=== PATIENT | male | born 2005 | race Hispanic/Latino ===

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

== ENCOUNTER 2025-01-17 20:19 | Emergency (ER) | payer BC, SELFPAY ==
--- OUTSIDE RECORDS SUMMARY | 2025-01-17 20:48 | XMS_ITS | Clinical Summary ---
Author Organization [facility] Address [address] [place] [address] Care Team Providers Care Spring Repairer Helper Hand Name Role Phone Claudine Puente MD Primary Care Provider [phone] Allergies No known active allergies Medications tretinoin (RETIN-A) 0.01 % TOP topical gel apply topically nightly. Use as directed. 45 g 3 1 Active Additional Information Patient not taking.Reported on 09/10/2023 ciprofloxacin-d exAMETHasone (CIPRODEX) 0.3-0.1 % Otic ear drops apply 4 drops into the right ear two times daily. Use as directed. 7.5 mL 1 1 Active Additional Information Patient not taking.Reported on 10/08/2021 pantoprazole (PROTONIX) 40 mg PO delayed release tablet Take 1 tablet (40 mg) by mouth every morning Swallow whole. 30 tablet 5 02/05/20 25 Active Active Problems Problem Noted Date Diagnosed Date Severe obesity due to excess calories with body mass index (BMI) greater than 99th percentile for age in pediatric patient 09/10/2023 BMI (body mass index), pediatric, > 99% for age 0810/08/2021 Encounters Date Type Department Care Team Description 01/05/2025 6:02 PM PROFILER HAND - 01/05/2025 8:42 PM PROFILER HAND Emergency [facility] Emergency Room - [address] [address] Rg Patterson DO Pain of upper abdomen (Primary Dx); Nausea Discharge Disposition: Discharged to home or self care (routine discharge) from Last 3 Months Immunizations Immunization Administration Dates Next Due Licoeknaxu-udfdaev-hzctcysbs Pertussis (DTaP) Injection 11/20/2007 Fluarix (Pf) - [...] ROTAVIRUS LIVE, PE NTA VALENT VACCINE 06/09/2006,03/20/2006,01/16/2006 Jmuknkx-Izdtnxrujp-Jlwifbbqz Pertussis (Tdap) Injection 06/17/2017 Varicella 11/23/2010,11/17/2006 Family [...] Currently or in the past 3 m onths, have you worried your food would run out before you had money to buy more? No 2023 In the past 12 months, have you run out of food or been unable to get more? No 09/10/2023 Transportation Needs Answer Date Record ed Currently or in the past 3 m onths, has lack of transportation kept you from [...] Sign Reading Time Taken Comments Blood Pressure 113/65 01/05/2025 8:16 PM PROFILER HAND Pulse 67 01/05/2025 8:16 PM PROFILER HAND Temperature 36.8 C (98.3 F) 01/05/2025 8:16 PM PROFILER HAND Respiratory Rate 18 01/05/2025 8:16 PM PROFILER HAND Oxygen Saturation 98% 01/05/2025 8:16 PM PROFILER HAND Inhaled Oxygen Concentration - - Weight 110 kg (243 lb 6.2 oz) 01/05/2025 6:01 PM PROFILER HAND Height 162.6 cm (5' 4) 04/04/2024 12:47 PM PROFILER HAND Body Mass Index 41.78 04/04/2024 12:47 PM PROFILER HAND Plan of Treatment Health Maintenance Due Date Last Done Comments HIV Screening 2005 Hepatitis C Screening 2005 COVID-19 Vaccine ( season) 2024 Influenza Vaccine (#1) 2024 , [...] on patient's age to complete this topic Procedures Procedure Name Priority Date/Time Associated Diagnosis Comments LIPASE STAT 01/05/2025 6:26 PM PROFILER HAND COMPREHENSIVE METABOLIC PANEL STAT 01/05/2025 6:26 PM PROFILER HAND CBC WITH DIFFERENTIAL STAT 01/05/2025 6:26 PM PROFILER HAND from Last 3 Months Results * Lipase (01/05/2025 6:26 PM PROFILER HAND) Lipase 12 <=60 U/L 01/05/2025 7:0 2 PM PROFILER HAND [facility] Blood VENOUS BLOOD / Unknown Venipuncture / Unknown 01/05/2025 6:26 PM PROFILER HAND 01/05/2025 6:42 PM PROFILER HAND Rg Patterson DO LAB BLOOD ORDERABLES Final Resul t [facility] [address] [place] [address], [facility] [phone] * (ABNORMAL) Comprehensive Metabolic Panel (01/05/2025 6:26 PM [facility]) Sodium 139 136 - 145 mmol/L 01/05/2025 7:02 PM [facility] Potassium 4.0 3.4 - 5.1 mmol/L 01/05/2025 7:02 PM [facility] Comment:Specimen slightly he molyzed. In vitro hemolysis may falsely increase results for this analyte. Interpret with caution. Chloride 101 99 - 108 mmol/L 01/05/2025 7:02 PM [facility] CO2 Total 25 22 - 31 mmol/L 01/05/2025 7:02 PM [facility] Anion Gap 13 8 - 16 01/05/2025 7:02 PM [facility] BUN 10 8 - 21 mg/dL 01/05/2025 7:02 PM [facility] Creatinine 1.08 0.72 - 1.25 mg/dL 01/05/2025 7:02 PM [facility] BUN/Creat Ratio 9.3 8.0 - 25.0 7:02 PM [facility] EGFR >90 01/05/2025 7:02 PM [facility] Glucose 92 70 - 100 mg/dL 01/05/2025 7:02 PM [facility] Total Protein 8.1 6.4 - 8.3 g/dL 01/05/2025 7:02 PM [facility] Albumin 4.4 2.9 - 5.0 g/dL 01/05/2025 7:02 PM [facility] Globulin 3.7(H) 2.0 - 3.4 g/dL 01/05/2025 7:02 PM [facility] Albumin/Globulin Ratio 1.2 1.0 - 2.2 mg/dL 01/05/2025 7:02 PM [facility] Calcium 9.0 8.4 - 11.0 mg/dL 01/05/2025 7:02 PM [facility] Bilirubin, Total 0.8 0.2 - 1.3 mg/dL 01/05/2025 7:02 PM PROFILER HAND [facility] Alkaline Phosphatase 87 40 - 150 U/L 01/05/2025 7:02 PM [facility] AST 32 5 - 34 U/L 01/05/2025 7:02 PM [facility] Comment:Specimen slightly he molyzed. In vitro hemolysis may falsely increase results for this analyte. Interpret with caution. ALT 31 0 - 55 U/L 01/05/2025 7:02 PM [facility] Blood VENOUS BLOOD / Unknown Venipuncture / Unknown 01/05/2025 6:26 PM PROFILER HAND 01/05/2025 6:42 PM [facility] Narrative [facility] - 01/05/2025 7:02 PM [facility] ESTIMATED GLOMERULAR FILTRATION RATE INTERPRETATIONS FOR ALL PATIENTS eGFR Value Interpretation Units are mL/min/1.73 sq m. <15 Kidney Failure 15-29 Severely decreased 30-44 Moderately to severely decreased 40-59 Mildly to moderately decreased 60-89 Mildly decreased >=90 Normal or high Not Applicable for ages <18 The GFR estimate (eGFR) is calculated using the 2020 CKD-EPI creatinine formula. (Please visit [email or web address] for more information.) The equation has not been validated for use in women, patients with serious comorbid conditions, or persons with extremes of body size, muscle mass or nutritional status. Rg Patterson LAB BLOOD ORDERABLES Final Resul t [facility] [address] [phone] * (ABNORMAL) CBC With Differential (01/05/2025 6:26 PM [facility]) Pathologist [facility] White Blood Count 6.84 4.00 - 10.00 K/uL 01/05/2025 6:45 PM [facility] Red Blood Cell Count 5.39 4.50 - 5.90 M/uL 01/05/2025 6:45 PM [facility] Hemoglobin 15.7 13.5 - 17.5 g/dL 01/05/2025 6:45 PM [facility] Hematocrit 47.2 42.0 - 54.0 % 01/05/2025 6:45 PM [facility] MCV 87.6 82.0 - 103.0 fL 01/05/2025 6:45 PM [facility] MCH 29.1 26.0 - 34.0 pg 01/05/2025 6:45 PM [facility] MCHC 33.3 30.0 - 37.0 g/dL 01/05/2025 6:45 PM [facility] Red Cell Distribution Width 12.6 11.5 - 14.5 % 01/05/2025 6:45 PM [facility] Platelet Count 276 150 - 399 K/uL 01/05/2025 6:45 PM [facility] Mean Platelet Volume 9.7 8.3 - 12.3 fL 01/05/2025 6:45 PM [facility] Nucleated Red Blood Cells 0.0 <=4.5 % 01/05/2025 6:45 PM [facility] Segmented Neutrophils 64.4 36.0 - 72.0 % 01/05/2025 6:45 PM [facility] Lymphocytes 23.0 18.0 - 52.0 % 01/05/2025 6:45 PM [facility] Monocytes 10.2(H) 3.0 - 10.0 % 01/05/2025 6:45 PM [facility] Eosinophils 1.8 0.0 - 6.0 % 01/05/2025 6:45 PM [facility] Basophils 0.3 <=3.0 % 01/05/2025 6:45 PM [facility] Neutrophil Auto # 4.41 1.84 - 7.80 K/uL 01/05/2025 6:45 PM [facility] Lymphocyte Number 1.57 0.72 - 5.20 K/uL 01/05/2025 6:45 PM [facility] Monocyte # 0.70 0.12 - 1.00 K/uL 01/05/2025 6:45 PM [facility] Eosinophil Absolute Auto 0.12 <=0.60 K/uL 01/05/2025 6:45 PM [facility] Basophil Absolute Auto 0.02 <=0.30 K/uL 01/05/2025 6:45 PM [facility] Immature Gran Absolute Cnt 0.02 <=0.15 K/uL 01/05/2025 6:45 PM PROFILER HAND [facility] Immature Gran Percent 0.3 <=1.5 % 01/05/2025 6:45 PM PROFILER HAND [facility] Instrument Absolute Neutrophil Count 4.41 1.84 - 7.80 K/uL 01/05/2025 6:45 PM PROFILER HAND [facility] Blood VENOUS BLOOD / Unknown Venipuncture / Unknown 01/05/2025 6:26 PM PROFILER HAND 01/05/2025 6:42 PM PROFILER HAND us Rg Patterson DO LAB BLOOD ORDERABLES Final Resul t [facility] [address] [place] [address], [facility] [phone] from Last 3 Months Insurance MEDICAID REPLACEMENT - BCBS MEDICAID REPLACEMENT - BCBS Care Teams Spring Repairer Helper Hand Relationship Specialty Start Date End Date Claudine Puente MD [address] [place] [id number] PCP - General Pediatrics 11/21/20
[2025-01-17 21:00] VITALS: BP 142/81; PULSE 74; RESP 16; TEMP 37; O2SAT 99
[2025-01-17 22:18] VITALS: BP 134/94; PULSE 66; O2SAT 100
--- NOTE | 2025-01-17 22:27 | PC.NURSE ---
patient presents to desk stating he was leaving. patient alert and oriented x4. ambulatory with steady gait. informed patient to return to ER if needed.
--- OUTSIDE RECORDS SUMMARY | 2025-01-17 23:02 | XMS_ITS | Clinical Summary ---
Author Organization [facility] Address [address] [place] [address] Care Team Providers Care Balloon Design Printer Name Role Phone Claudine Puente MD Primary Care Provider [phone] Allergies No known active allergies Medications tretinoin [...] Department Care Team Description 01/05/2025 6:02 PM CANDY DECORATOR - 01/05/2025 8:42 PM CANDY DECORATOR Emergency [facility] Emergency Room - [address] [address] Rg Patterson DO Pain of upper abdomen (Primary Dx); Nausea Discharge Disposition: Discharged to home or self care (routine discharge) from Last 3 Months Immunizations Immunization Administration Dates Next Due Gwrptpgtjg-itnqvsx-vkjvmraly Pertussis (DTaP) Injection 11/20/2007 Fluarix (Pf) - [...] ROTAVIRUS LIVE, PE NTA VALENT VACCINE 06/09/2006,03/20/2006,01/16/2006 Eqxgnzg-Mpumkfbixp-Rjkysgigu Pertussis (Tdap) Injection 06/17/2017 Varicella 11/23/2010,11/17/2006 Family [...] Comments Blood Pressure 113/65 01/05/2025 8:16 PM CANDY DECORATOR Pulse 67 01/05/2025 8:16 PM CANDY DECORATOR Temperature 36.8 C (98.3 F) 01/05/2025 8:16 PM CANDY DECORATOR Respiratory Rate 18 01/05/2025 8:16 PM CANDY DECORATOR Oxygen Saturation 98% 01/05/2025 8:16 PM CANDY DECORATOR Inhaled Oxygen Concentration - - Weight 110 kg (243 lb 6.2 oz) 01/05/2025 6:01 PM CANDY DECORATOR Height 162.6 cm (5' 4) 04/04/2024 12:47 PM CANDY DECORATOR Body Mass Index 41.78 04/04/2024 12:47 PM CANDY DECORATOR Plan of Treatment Health Maintenance Due Date [...] Diagnosis Comments LIPASE STAT 01/05/2025 6:26 PM CANDY DECORATOR COMPREHENSIVE METABOLIC PANEL STAT 01/05/2025 6:26 PM CANDY DECORATOR CBC WITH DIFFERENTIAL STAT 01/05/2025 6:26 PM CANDY DECORATOR from Last 3 Months Results * Lipase (01/05/2025 6:26 PM CANDY DECORATOR) Lipase 12 <=60 U/L 01/05/2025 7:0 2 PM CANDY DECORATOR [facility] Blood VENOUS BLOOD / Unknown Venipuncture / Unknown 01/05/2025 6:26 PM CANDY DECORATOR 01/05/2025 6:42 PM CANDY DECORATOR Rg Patterson DO LAB BLOOD ORDERABLES Final Resul t [facility] [address] [place] [address], [facility] [phone] * (ABNORMAL) Comprehensive Metabolic Panel (01/05/2025 6:[address] [facility]) Sodium 139 136 - 145 mmol/L 01/05/2025 7:02 PM [facility] Potassium 4.0 3.4 - 5.1 mmol/L 01/05/2025 7:02 PM [facility] Comment:Specimen slightly he molyzed. In vitro hemolysis may falsely increase results for this analyte. Interpret with caution. Chloride 101 99 - 108 mmol/L 01/05/2025 7:02 PM [facility] CO2 Total 25 22 - 31 mmol/L 01/05/2025 7:02 PM [facility] Anion Gap 13 8 - 16 01/05/2025 7:02 PM [facility] BUN 10 8 - 21 mg/dL 01/05/2025 7:02 PM [facility] Creatinine 1.08 0.72 - 1.25 mg/dL 01/05/2025 7:02 PM [facility] BUN/Creat Ratio 9.3 8.0 - 25.0 7:02 PM [facility] EGFR >90 01/05/2025 7:02 PM [facility] Glucose 92 70 - 100 mg/dL 01/05/2025 7:02 PM [facility] Total Protein 8.1 6.4 - 8.3 g/dL 01/05/2025 7:02 PM [facility] Albumin 4.4 2.9 - 5.0 g/dL 01/05/2025 7:02 PM [facility] Globulin 3.7(H) 2.0 - 3.4 g/dL 01/05/2025 7:02 PM [facility] Albumin/Globulin Ratio 1.2 1.0 - 2.2 mg/dL 01/05/2025 7:02 PM [facility] Calcium 9.0 8.4 - 11.0 mg/dL 01/05/2025 7:02 PM [facility] Bilirubin, Total 0.8 0.2 - 1.3 mg/dL 01/05/2025 7:02 PM CANDY DECORATOR [facility] Alkaline Phosphatase 87 40 - 150 U/L 01/05/2025 7:02 PM [facility] AST 32 5 - 34 U/L 01/05/2025 7:02 PM [facility] Comment:Specimen slightly he molyzed. In vitro hemolysis may falsely increase results for this analyte. Interpret with caution. ALT 31 0 - 55 U/L 01/05/2025 7:02 PM [facility] Blood VENOUS BLOOD / Unknown Venipuncture / Unknown 01/05/2025 6:26 PM CANDY DECORATOR 01/05/2025 6:[address] [facility] Narrative [facility] - 01/05/2025 7:[address] [facility] ESTIMATED GLOMERULAR FILTRATION RATE INTERPRETATIONS FOR ALL PATIENTS eGFR Value Interpretation Units are mL/min/1.73 sq m. <15 Kidney Failure 15-29 Severely decreased 30-44 Moderately to severely decreased 40-59 Mildly to moderately decreased 60-89 Mildly decreased >=90 Normal or high Not Applicable for ages <18 The GFR estimate (eGFR) is calculated using the 2020 CKD-EPI creatinine formula. (Please visit [email or web address] for more information.) The equation has not been validated for use in women, patients with serious comorbid conditions, or persons with extremes of body size, muscle mass or nutritional status. Rg Patterson LAB BLOOD ORDERABLES Final Resul t [facility] [address] [phone] * (ABNORMAL) CBC With Differential (01/05/2025 6:[address] [facility]) Pathologist [facility] [place] White Blood Count 6.84 4.00 - 10.00 K/uL 01/05/2025 6:45 PM [facility] Red Blood Cell Count 5.39 4.50 - 5.90 M/uL 01/05/2025 6:45 PM [facility] Hemoglobin 15.7 13.5 - 17.5 g/dL 01/05/2025 6:45 PM [facility] Hematocrit 47.2 42.0 - 54.0 % 01/05/2025 6:45 PM [facility] MCV 87.6 82.0 - 103.0 fL 01/05/2025 6:45 PM [facility] MCH 29.1 26.0 - 34.0 pg 01/05/2025 6:45 PM [facility] MCHC 33.3 30.0 - 37.0 g/dL 01/05/2025 6:45 PM [facility] Red Cell Distribution Width 12.6 11.5 - 14.5 % 01/05/2025 6:45 PM [facility] Platelet Count 276 150 - 399 K/uL 01/05/2025 6:45 PM [facility] Mean Platelet Volume 9.7 8.3 - 12.3 fL 01/05/2025 6:45 PM [facility] Nucleated Red Blood Cells 0.0 <=4.5 % 01/05/2025 6:45 PM [facility] Segmented Neutrophils 64.4 36.0 - 72.0 % 01/05/2025 6:45 PM [facility] Lymphocytes 23.0 18.0 - 52.0 % 01/05/2025 6:45 PM [facility] Monocytes 10.2(H) 3.0 - 10.0 % 01/05/2025 6:45 PM [facility] Eosinophils 1.8 0.0 - 6.0 % 01/05/2025 6:45 PM [facility] Basophils 0.3 <=3.0 % 01/05/2025 6:45 PM [facility] Neutrophil Auto # 4.41 1.84 - 7.80 K/uL 01/05/2025 6:45 PM [facility] Lymphocyte Number 1.57 0.72 - 5.20 K/uL 01/05/2025 6:45 PM [facility] Monocyte # 0.70 0.12 - 1.00 K/uL 01/05/2025 6:45 PM [facility] Eosinophil Absolute Auto 0.12 <=0.60 K/uL 01/05/2025 6:45 PM [facility] Basophil Absolute Auto 0.02 <=0.30 K/uL 01/05/2025 6:45 PM [facility] Immature Gran Absolute Cnt 0.02 <=0.15 K/uL 01/05/2025 6:45 PM CANDY DECORATOR [facility] Immature Gran Percent 0.3 <=1.5 % 01/05/2025 6:45 PM CANDY DECORATOR [facility] Instrument Absolute Neutrophil Count 4.41 1.84 - 7.80 K/uL 01/05/2025 6:45 PM CANDY DECORATOR [facility] Blood VENOUS BLOOD / Unknown Venipuncture / Unknown 01/05/2025 6:26 PM CANDY DECORATOR 01/05/2025 6:42 PM CANDY DECORATOR us Rg Patterson DO LAB BLOOD ORDERABLES Final Resul t [facility] [address] [place] [address], [facility] [phone] from Last 3 Months Insurance MEDICAID REPLACEMENT - [employer] MEDICAID REPLACEMENT - BCBS Care Teams Balloon Design Printer Relationship Specialty Start Date End Date Claudine Puente MD [address] [place] [id number] PCP - General Pediatrics 11/21/20
== END 2025-01-17 23:24 | disposition left against medical advice (07) ==
LOC: ANHED 23:00
DX: R11.2 Nausea with vomiting, unspecified (principal)
CPT/HCPCS: 99199